=== PATIENT | male | born 1955 | race Caucasian/White ===

== ENCOUNTER 2016-05-23 13:11 | Outpatient (CLI) | payer MEDICAID | END 2016-05-23 13:12 | disposition home or self-care (01) | DX: N50.9 Disorder of male genital organs, unspecified (principal); Z12.5 Encounter for screening for malignant neoplasm of prostate ==

== ENCOUNTER 2016-06-02 08:36 | Outpatient (CLI) | payer MEDICAID | END 2016-06-02 08:37 | disposition home or self-care (01) | DX: N43.3 Hydrocele, unspecified (principal) ==

== ENCOUNTER 2021-09-08 10:10 | Outpatient (CLI) | payer MEDICAID ==
[2021-09-08 15:05] LABS: BASOPHILS # (AUTO) 0.1 10^3/uL (0.0-0.1); BASOPHILS % (AUTO) 1.1 %; EOSINOPHILS # (AUTO) 0.2 10^3/uL (0.0-0.7); EOSINOPHILS % (AUTO) 3.4 %; HCT - HEMATOCRIT 46.9 % (42.0-52.0); HGB - HEMOGLOBIN 14.7 g/dL (14.0-18.0); LYMPHOCYTES % (AUTO) 42.9 %; MEAN CORPUSCULAR HEMOGLOBIN 30.6 pg (27.0-31.0); MEAN CORPUSCULAR HGB CONC 31.3 g/dL (32.0-36.0); MEAN CORPUSCULAR VOLUME 97.5 fL (80.0-94.0); MEAN PLATELET VOLUME 9.7 fL (7.4-11.4); MONOCYTES # (AUTO) 0.6 10^3/uL (0.0-1.0); MONOCYTES % (AUTO) 9.1 %; NEUTROPHILS # (AUTO) 3.1 10^3/uL (1.5-6.6); NEUTROPHILS % (AUTO) 43.4 %; PLT - PLATELET COUNT 333 10^3/uL (130-450); RED BLOOD COUNT 4.81 10^6/uL (4.70-6.10); RED CELL DISTRIBUTION WIDTH 13.1 % (12.0-15.0)
[2021-09-08 15:56] LABS: ALBUMIN/GLOBULIN RATIO 1.3 (1.0-2.2); BILIRUBIN,TOTAL 0.8 mg/dL (0.2-1.0); CALCIUM 9.1 mg/dL (8.5-10.3); CREATININE 1.3 mg/dL (0.6-1.2); POTASSIUM 4.2 mmol/L (3.5-5.0)
[2021-09-08 16:16] LABS: THYROID STIMULATING HORMONE 2.73 uIU/mL (0.34-5.60)
[2021-09-08 16:18] LABS: FREE T4 (FREE THYROXINE) 0.7 ng/dL (0.58-1.64)
== END 2021-09-08 10:11 | disposition home or self-care (01) ==
LOC: LAB.S 10:10
PROVIDERS: ATTEND Nurse Practitioner Family
DX: I10 Essential (primary) hypertension (principal); Z12.5 Encounter for screening for malignant neoplasm of prostate
CPT/HCPCS: 36415; 80050; 84153; 84439

== ENCOUNTER 2022-09-06 13:11 | Emergency (ER) | payer MEDICARE ==
--- OUTSIDE RECORDS SUMMARY | 2022-09-06 14:08 | EXTERNAL MEDICAL SUMMARY RPT | Continuity of Care Document ---
:1955 Author Organization [facility] Address [address] [place] [address] Phone Care Team Providers Name Role Phone Unavailable Unavailable Unavailable Bright Osullivan Md Unavailable Unavailable Zaria Reyes Robert Unavailable Unavailable Blayne Patient Registrar, Bari Unavailable Unavailab mari Kulkarni Rn, Bsn, Josi Unavailable Unavailable Allergies No information. Encounters No information. Functional Status No information. Immunizations No information. Medications date description facility 2022-08-31 00:00 tramadol [facility] 2022-07-14 00:00 mupirocin [facility] 2022-07-14 00:00 mupirocin [facility] 2022-07-14 00:00 mupirocin [facility] 2022-07-14 00:00 chlorthalidone [facility] 2022-07-14 00:00 chlorthalidone [facility] 2022-07-16 00:00 chlorthalidone [facility] 2022-07-19 00:00 chlorthalidone [facility] 2022-08-31 00:00 chlorthalidone [facility] 2022-09-01 00:00 chlorthalidone [facility] 2022-07-14 00:00 mupirocin [facility] 2022-07-14 00:00 mupirocin [facility] 2022-07-14 00:00 mupirocin [facility] 2022-07-14 00:00 albendazole [facility] 2022-07-14 00:00 albendazole [facility] 2022-07-14 00:00 albendazole [facility] 2022-07-14 00:00 albendazole [facility] 2022-07-14 00:00 chlorthalidone [facility] 2022-07-14 00:00 chlorthalidone [facility] 2022-07-16 00:00 chlorthalidone [facility] 2022-07-19 00:00 chlorthalidone [facility] 2022-08-31 00:00 chlorthalidone [facility] 2022-09-01 00:00 chlorthalidone [facility] 2022-07-14 00:00 albendazole [facility] 2022-07-14 00:00 albendazole [facility] 2022-07-14 00:00 albendazole [facility] 2022-07-14 00:00 albendazole [facility] 2022-07-14 00:00 albendazole [facility] 2022-07-14 00:00 albendazole [facility] 2022-07-14 00:00 albendazole [facility] 2022-07-14 00:00 albendazole [facility] 2022-07-14 00:00 mupirocin [facility] 2022-07-14 00:00 mupirocin [facility] 2022-07-14 00:00 mupirocin [facility] 2022-07-14 00:00 chlorthalidone [facility] 2022-07-14 00:00 chlorthalidone [facility] 2022-07-16 00:00 chlorthalidone [facility] 2022-07-19 00:00 chlorthalidone [facility] 2022-08-31 00:00 chlorthalidone [facility] 2022-09-01 00:00 chlorthalidone [facility] 2022-08-31 00:00 tramadol [facility] 2022-07-14 00:00 chlorthalidone [facility] 2022-07-14 00:00 chlorthalidone [facility] 2022-07-16 00:00 chlorthalidone [facility] 2022-07-19 00:00 chlorthalidone [facility] 2022-08-31 00:00 chlorthalidone [facility] 2022-09-01 00:00 chlorthalidone [facility] 2022-08-31 00:00 tramadol [facility] 2022-07-14 00:00 albendazole [facility] 2022-07-14 00:00 albendazole [facility] 2022-07-14 00:00 albendazole [facility] 2022-07-14 00:00 albendazole [facility] 2022-08-31 00:00 tramadol [facility] [place] 2022-07-14 00:00 mupirocin [facility] 2022-07-14 00:00 mupirocin [facility] 2022-07-14 00:00 mupirocin [facility] Problems date description facility 2022-07-14 00:00 Acute diarrhea [facility] 2022-07-14 00:00 Acute diarrhea [facility] 2022-07-14 00:00 Other specified diseases of hair [facility] 2022-07-14 00:00 Other specified diseases of hair [facility] 2022-07-14 00:00 Diarrhea [facility] 2022-07-14 00:00 Diarrhea [facility] 2022-07-14 00:00 Ashley incarnati [facility] 2022-07-14 00:00 Ashley incarnati [facility] 2022-07-14 00:00 Other specified follicular [facility] 2022-07-14 00:00 Other specified follicular [facility] 2022-07-14 00:00 Diarrhea, unspecified [facility] 2022-07-14 00:00 Diarrhea, unspecified [facility] 2022-08-31 00:00 Jaw pain [facility] Procedures date description facility 2022-07-14 00:00 Visit Code Hold [facility] 2022-07-14 00:00 Visit Code Hold [facility] [place] 2022-08-31 00:00 Visit Code Hold [facility] Results/Labs No information. Social History date description facility 2022-07-14 00:00 Never smoker [facility]-In [facility] 2022-07-14 00:00 Never smoker [facility] [place] 2022-08-31 00:00 Never smoker [facility] Vital Signs date measurement value units 2022-07-14 00:00 BMI 34.79 kg/m2 2022-07-14 00:00 BP_diastolic 85 mmHg 2022-07-14 00:00 BP_systolic 142 mmHg 2022-07-14 00:00 heart_rate 79 /min 2022-07-14 00:00 height_metric 172.72 cm 2022-07-14 00:00 height_standard 68 in 2022-07-14 00:00 respiration_rate 16 /min 2022-07-14 00:00 temperature_metric 37 C 2022-07-14 00:00 temperature_standard 98.6 F 2022-07-14 00:00 weight_metric 103.42 kg 2022-07-14 00:00 weight_standard 228 lb 2022-08-31 00:00 BMI 35.10 kg/m2 2022-08-31 00:00 BP_diastolic 76 mmHg 2022-08-31 00:00 BP_systolic 118 mmHg 2022-08-31 00:00 heart_rate 65 /min 2022-08-31 00:00 height_metric 172.72 cm 2022-08-31 00:00 height_standard 68 in 2022-08-31 00:00 respiration_rate 16 /min 2022-08-31 00:00 temperature_metric 36.56 C 2022-08-31 00:00 temperature_standard 97.8 F 2022-08-31 00:00 weight_metric 104.33 kg 2022-08-31 00:00 weight_standard 230 lb
[2022-09-06] MEDS ORDERED: KETOROLAC 15 MG/ML VIAL IVP STA (14:18)
--- NOTE | 2022-09-06 14:20 | ED Physician Documentation ---
PD HPI FOCAL NEURO - Stated complaint Stated Complaint: CONFUSION/HEADACHE - Chief complaint Chief Complaint: Neuro - History obtained from History obtained from: Patient - Additional information Additional information: 67-year-old gentleman has had a rough month. He arrives with his daughter for the evaluation of headache and confusion. He had a headache for about 3 weeks. He is not someone who has frequent headaches. It is a bitemporal headache. Its associate with mild confusion. He originally went to the urgent care think it might be an ear infection. They thought it was his teeth and he went to see his dentist. He started antibiotics yesterday. Is also been on tramadol for the last few days but has not had any in 24 hours. The confusion and headache well preceded the tramadol. No fevers. PD PAST MEDICAL HISTORY - Past Medical History Past Medical History: Yes Cardiovascular: None Respiratory: None Neuro: Headaches Endocrine/Autoimmune: None GI: None : Benign prostate hypertrophy HEENT: None Psych: Depression Musculoskeletal: None Derm: None - Past Surgical History Past Surgical History: Yes Ortho: Arthroscopic surgery - Present Medications Home Medications: Ambulatory Orders Medication Instructions Recorded Confirmed Tamsulosin [Flomax] 0.4 mg PO DAILY 09/06/22 09/06/22 clindamycin HCL [Clindamycin HCl] 300 mg PO Q8H 09/06/22 09/06/22 traMADol [Ultram] 50 mg PO Q6H PRN 09/06/22 09/06/22 - Allergies Allergies/Adverse Reactions: Allergies Allergy/AdvReac Type Severity Reaction Status Date / Time Penicillins Allergy Unknown Verified 09/06/22 13:24 Sulfa (Sulfonamide Allergy Unknown Verified 09/06/22 13:24 Antibiotics) - Social History Does the pt smoke?: No Smoking Status: Never smoker Does the pt drink ETOH?: No Does the pt have substance abuse?: Yes Substance Use and Type: Marijuana - Immunizations Immunizations are current?: Yes PD ED PE NORMAL - Vitals Vital signs reviewed: Yes - General General: Other (He is alert and oriented to person and place, he states the date was in early September but gets the year right. He knows his address, knows what he had for breakfast. He fumbles with his daughter's birthday but his daughter does not think that is atypical.) - HEENT HEENT: EOMI, Other (Small pupils, missing most of his teeth.) - Neck Neck: Supple, no meningeal sign, No bony TTP - Cardiac Cardiac: RRR, No murmur - Respiratory Respiratory: No respiratory distress, Clear bilaterally - Abdomen Abdomen: Normal bowel sounds, Soft, Non tender - Back Back: No CVA TTP, No spinal TTP - Derm Derm: Normal color, Warm and dry - Neuro Neuro: set designer 2-12 intact, Other (Normal [id number] and gmlg-ny-[id number] testing, NIH stroke scale of 1 for missing the month.) Eye Opening: Spontaneous Motor: Obeys Commands Results - Vitals Vitals: Vital Signs - 24 hr 09/06/22 09/06/22 09/06/22 13:17 13:38 14:17 Temperature 37.0 C Heart Rate 80 68 Respiratory 16 16 16 Rate Blood Pressure 140/80 H 141/84 H O2 Saturation 98 97 09/06/22 09/06/22 09/06/22 14:41 15:09 15:52 Temperature Heart Rate 68 88 Respiratory 16 16 16 Rate Blood Pressure 119/58 L 132/85 H O2 Saturation 100 99 Oxygen O2 Source Room air - Labs Labs: Laboratory Tests 09/06/22 09/06/22 09/06/22 14:32 14:32 14:32 WBC 10.6 RBC 5.16 Hgb 15.6 Hct 48.2 MCV 93.4 MCH 30.2 MCHC 32.4 RDW 12.8 Plt Count 369 MPV 9.2 Neut # (Auto) 7.1 H Lymph # (Auto) 2.4 Foard # (Auto) 0.9 Eos # (Auto) 0.1 Baso # (Auto) 0.1 Absolute Nucleated RBC 0.00 Nucleated RBC % 0.0 PT INR Sodium 140 Potassium 4.1 Chloride 100 L Carbon Dioxide 32 Anion Gap 8.0 BUN 19 Creatinine 1.3 H Estimated GFR (MDRD) 55 L Glucose 105 H Calcium 9.7 Total Bilirubin 1.4 H AST 19 ALT 16 Alkaline Phosphatase 55 Total Protein 7.8 Albumin 4.2 Globulin 3.6 Albumin/Globulin Ratio 1.2 Lipase 39 TSH 1.13 Urine Color Urine Clarity Urine pH Ur Specific [place] Urine Protein Urine Glucose (UA) Urine Ketones Urine Occult Blood Urine Nitrite Urine Bilirubin Urine Urobilinogen Ur Leukocyte Esterase Urine RBC Urine WBC Ur Squamous Epith Cells Urine Bacteria Ur Microscopic Review Urine Culture Comments Salicylates < 6.0 Urine Opiates Screen Ur Oxycodone Screen Urine Methadone Screen Ur Propoxyphene Screen Acetaminophen < 10 L Ur Barbiturates Screen Ur Tricyclics Screen Ur Phencyclidine Scrn Ur Amphetamine Screen U Methamphetamines Scrn U Benzodiazepines Scrn Urine Cocaine Screen U Cannabinoids Screen Ethyl Alcohol < 5.0 SARS-CoV-2 (PCR) 09/06/22 09/06/22 09/06/22 14:54 15:05 15:07 WBC RBC Hgb Hct MCV MCH MCHC RDW Plt Count MPV Neut # (Auto) Lymph # (Auto) Foard # (Auto) Eos # (Auto) Baso # (Auto) Absolute Nucleated RBC Nucleated RBC % PT 12.3 INR 1.1 Sodium Potassium Chloride Carbon Dioxide Anion Gap BUN Creatinine Estimated GFR (MDRD) Glucose Calcium Total Bilirubin AST ALT Alkaline Phosphatase Total Protein Albumin Globulin Albumin/Globulin Ratio Lipase TSH Urine Color YELLOW Urine Clarity CLEAR Urine pH 6.0 Ur Specific [place] 1.010 Urine Protein NEGATIVE Urine Glucose (UA) NEGATIVE Urine Ketones TRACE Urine Occult Blood MODERATE H Urine Nitrite NEGATIVE Urine Bilirubin NEGATIVE Urine Urobilinogen 0.2 (NORMAL) Ur Leukocyte Esterase NEGATIVE Urine RBC 0-5 Urine WBC 4-5 Ur Squamous Epith Cells RARE Squamous Urine Bacteria Rare Ur Microscopic Review INDICATED Urine Culture Comments NOT INDICATED Salicylates Urine Opiates Screen NEGATIVE Ur Oxycodone Screen NEGATIVE Urine Methadone Screen NEGATIVE Ur Propoxyphene Screen NEGATIVE Acetaminophen Ur Barbiturates Screen NEGATIVE Ur Tricyclics Screen NEGATIVE Ur Phencyclidine Scrn NEGATIVE Ur Amphetamine Screen NEGATIVE U Methamphetamines Scrn NEGATIVE U Benzodiazepines Scrn NEGATIVE Urine Cocaine Screen NEGATIVE U Cannabinoids Screen NEGATIVE Ethyl Alcohol SARS-CoV-2 (PCR) NOT DETECTED PD Medical Decision Making - ED course ED course: 67-year-old gentleman presents with confusion and headache. There is no reported trauma. Differential diagnosis is broad includes brain tumor, electrolyte abnormality, alcohol or drug use. He was sent over for CT and I viewed this immediately upon it being available to me with a large left-sided subdural hemorrhage with midline shift. [facility] was called for transfer. Coags were added onto his labs. Excepted to [facility] at 3:[address] Raman bowie. Air ambulance activated given the size of the subdural with early signs of herniation. Discussed with the daughter if there had been any trauma. She recalls that he hit his head getting into the car a few weeks ago. That may have been causative. For potential trauma he was sent back over for CT of the cervical spine prior to transport. Read pending prior to transport. - Critical Care Time(min): 37 Time Includes: Direct patient care, Review records, Reassess patient, Document care, Coordinate care, Medical consult, Family consult for tx apr Data interpretation: Labs, Pulse ox Departure - Departure Disposition: 02 Transfer Acute Care Hosp Clinical Impression: Subdural hemorrhage Condition: Critical
[2022-09-06 14:48] LABS: BASOPHILS # (AUTO) 0.1 10^3/uL (0.0-0.1); BASOPHILS % (AUTO) 0.8 %; EOSINOPHILS # (AUTO) 0.1 10^3/uL (0.0-0.7); EOSINOPHILS % (AUTO) 0.7 %; HCT - HEMATOCRIT 48.2 % (42.0-52.0); HGB - HEMOGLOBIN 15.6 g/dL (14.0-18.0); LYMPHOCYTES # (AUTO) 2.4 10^3/uL (1.5-3.5); LYMPHOCYTES % (AUTO) 22.7 %; MEAN CORPUSCULAR HEMOGLOBIN 30.2 pg (27.0-31.0); MEAN CORPUSCULAR HGB CONC 32.4 g/dL (32.0-36.0); MEAN CORPUSCULAR VOLUME 93.4 fL (80.0-94.0); MEAN PLATELET VOLUME 9.2 fL (7.4-11.4); MONOCYTES # (AUTO) 0.9 10^3/uL (0.0-1.0); MONOCYTES % (AUTO) 8.6 %; NEUTROPHILS # (AUTO) 7.1 10^3/uL (1.5-6.6); NEUTROPHILS % (AUTO) 66.9 %; PLT - PLATELET COUNT 369 10^3/uL (130-450); RED BLOOD COUNT 5.16 10^6/uL (4.70-6.10); RED CELL DISTRIBUTION WIDTH 12.8 % (12.0-15.0); WHITE BLOOD COUNT 10.6 x10^3/uL (4.8-10.8)
--- NOTE | 2022-09-06 14:50 | CT Report ---
PROCEDURE: HEAD WO INDICATIONS: headache TECHNIQUE: Noncontrast 4.5 mm thick angled axial sections acquired from the foramen magnum to the vertex. For r adiation dose reduction, the following was used: automated exposure control, adjustment of mA and/or kV according to patient size. COMPARISON: None FINDINGS: Image quality: Good CSF spaces: Left sulcal effacement. There is left uncal medialized position and partially effaced lef t basal cisterns. The right lateral ventricle temporal horn is dilated compared to the left. There is about 1.7 cm of midline shift. Volume: There is volume loss. Brain: Left subdural mixed density hematoma measures up to 1.8 cm in thickness. Craniofacial structures: No displaced fracture noted. IMPRESSION: Moderate-sized left subdural hematoma, with midline shift and uncal medialization. There is mild dila tion of the right lateral ventricle temporal horn, which could indicate early entrapment. Neurosurgic al consultation and transfer is recommended. Reviewed at CT scanner by ordering physician. Reviewed by: Ernst James MD on 09/06/2022 2:49 PM PDT Approved by: Ernst James MD on 09/06/2022 2:49 PM PDT Station ID: [id number]
[2022-09-06 15:07] LABS: MUDS CUTOFF CONCENTRATIONS CUTOFF CONC BELOW:
[2022-09-06 15:09] LABS: BILIRUBIN,URINE NEGATIVE (NEGATIVE); GLUCOSE, URINE (UA) NEGATIVE (NEGATIVE); KETONES,URINE (UA) TRACE mg/dL (NEGATIVE); LEUKOCYTE ESTERASE, URINE NEGATIVE (NEGATIVE); NITRITE,URINE NEGATIVE (NEGATIVE); OCCULT BLOOD,URINE MODERATE (NEGATIVE); PROTEIN,URINE NEGATIVE (NEGATIVE); UROBILINOGEN,URINE 0.2 (NORMAL) E.U./dL (NORMAL)
[2022-09-06 15:11] LABS: ACETAMINOPHEN < 10 ug/mL (10-30); ALBUMIN 4.2 g/dL (3.2-5.5); ALBUMIN/GLOBULIN RATIO 1.2 (1.0-2.2); ALKALINE PHOSPHATASE 55 IU/L (42-121); ALT ALANINE AMINOTRANSFERASE 16 IU/L (10-60); AST ASPARTATE AMINOTRANSFERASE 19 IU/L (10-42); BILIRUBIN,TOTAL 1.4 mg/dL (0.2-1.0); BUN - BLOOD UREA NITROGEN 19 mg/dL (6-20); CALCIUM 9.7 mg/dL (8.5-10.3); CARBON DIOXIDE - CO2 32 mmol/L (21-32); CHLORIDE 100 mmol/L (101-111); CREATININE 1.3 mg/dL (0.6-1.2); ETOH - ETHANOL < 5.0 mg/dL; GFR - MDRD 55 (>89); GLUCOSE 105 mg/dL (70-100); LIPASE 39 U/L (22-51); POTASSIUM 4.1 mmol/L (3.5-5.0); SALICYLATE < 6.0 mg/dL; SODIUM 140 mmol/L (135-145); TOTAL PROTEIN 7.8 g/dL (6.7-8.2)
[2022-09-06 15:20] LABS: INR 1.1 (0.8-1.2); PT - PROTHROMBIN TIME 12.3 secs (9.9-12.6)
[2022-09-06 15:21] LABS: BACTERIA,URINE Rare /HPF (None Seen); CLARITY,URINE CLEAR (CLEAR); RBC,URINE 0-5 /HPF (0-5); SQUAMOUS EPITHELIAL CELL,UR RARE Squamous (<= Few)
[2022-09-06 15:22] LABS: AMPHETAMINE SCREEN,URINE NEGATIVE (NEGATIVE); BARBITURATE SCREEN,UR NEGATIVE (NEGATIVE); BENZODIAZEPINES SCREEN, URINE NEGATIVE (NEGATIVE); COCAINE SCREEN URINE NEGATIVE (NEGATIVE); METHADONE SCREEN, URINE NEGATIVE (NEGATIVE); METHAMPHETAMINES SCREEN, URINE NEGATIVE (NEGATIVE); OPIATE SCREEN, URINE NEGATIVE (NEGATIVE); OXYCODONE SCREEN, URINE NEGATIVE (NEGATIVE); PROPOXYPHENE SCREEN, URINE NEGATIVE (NEGATIVE); THC CANNABINOID SCREEN, URINE NEGATIVE (NEGATIVE); TRICYCLIC ANTIDEPRESSANT,URINE NEGATIVE (NEGATIVE)
[2022-09-06] MEDS ORDERED: MORPHINE 2 MG/ML CARPUJECT IVP STA (15:38)
[2022-09-06 15:53] VITALS: BP 132/85
[2022-09-06] MEDS ORDERED: ONDANSETRON 4 MG/2 ML VIAL IVP STA (16:02)
--- NOTE | 2022-09-06 16:44 | CT Report ---
PROCEDURE: CERVICAL SPINE WO INDICATIONS: subdural hemorrhage TECHNIQUE: Noncontrast 3 mm thick sections acquired from the skull base to the T4 level. Sagittal and coronal r eformats were then constructed. For radiation dose reduction, the following was used: automated exp osure control, adjustment of mA and/or kV according to patient size. COMPARISON: None. FINDINGS: Image quality: Excellent. Bones: No fractures or dislocations. Visualized superior ribs are intact. Soft tissues: Prevertebral soft tissues are normal in thickness. No paravertebral hematomas. No ap ical pneumothoraces. IMPRESSION: No acute, displaced fracture or traumatic subluxation. Reviewed by: Dariel Manrique MD on 09/06/2022 4:43 PM PDT Approved by: Dariel Manrique MD on 09/06/2022 4:43 PM PDT Station ID: [id number]
== END 2022-09-06 16:30 | disposition short-term general hospital (02) ==
LOC: ED 13:11
DX: I62.00 Nontraumatic subdural hemorrhage, unspecified (principal)
CPT/HCPCS: 36415; 70450; 72125; 80053; 80306; 80307; 81001; 83690; 84443; 85025; 85610; 87635; 96374; 96375; 99285; 99291; G0480; 80320; 80329; 81003; 87086

== ENCOUNTER 2023-01-23 07:54 | Outpatient (CLI) | payer MEDICARE ==
--- NOTE | 2023-01-23 09:06 | MRI Report ---
PROCEDURE: BRAIN WO INDICATIONS: SUBDURAL HEMATOMA TECHNIQUE: Noncontrast axial T1 spin echo, axial T2 fast spin echo, sagittal and axial FLAIR, coronal T2 fast sp in echo, axial gradient echo, axial diffusion and ADC through the brain. COMPARISON: None. FINDINGS: Image quality: Excellent. CSF Spaces: Basal cisterns are patent. No extra-axial fluid collections. Ventricles are normal in size and shape. Brain: No intracranial masses or hemorrhage. Mejia/white matter interface is normal. Mild diffuse ce rebral volume loss. Brainstem appears normal. Diffusion-weighted images demonstrate no acute ischemi c insult. No chronic ischemic insults. Normal intravascular flow voids are present. Skull and face: Calvarium has normal marrow signal. Orbits appear normal. Sinuses: Sinuses and mastoids are clear. IMPRESSION: 1. No acute process. No recent infarct. 2. Mild cerebral volume loss. Reviewed by: Preston Guajardo MD on 01/23/2023 9:05 AM PDT Approved by: Preston Guajardo MD on 01/23/2023 9:05 AM PDT Station ID: [id number]
== END 2023-01-23 07:55 | disposition home or self-care (01) ==
LOC: DI 07:54
PROVIDERS: ATTEND Physical Medicine & Rehabilitation
DX: S06.5XAA Traumatic subdural hemorrhage with loss of consciousness status unknown, initial encounter (principal); R42 Dizziness and giddiness; G31.89 Other specified degenerative diseases of nervous system